=== PATIENT | male | born 1975 | race Caucasian/White ===

== ENCOUNTER 2020-10-27 06:26 | Inpatient (IN) | payer SELFPAY ==
[~2020-10-27] VITALS: Ht 190.5 cm; Wt 117.7 kg
[~2020-10-27 06:26] MED LIST: NO HOME MEDS
--- NOTE | 2020-10-27 06:27 | NUR ---
BY WC TO ROOM.
--- NOTE | 2020-10-27 06:58 | NUR ---
RECEIVED REPORT FROM JANEE CALHOUN.
--- NOTE | 2020-10-27 07:00 | NUR ---
REPORT TO UNIQUE MORAN
--- NOTE | 2020-10-27 07:10 | NUR ---
COVID SWAB COLLECTED, ISOLATION PRECAUTIONS INITIATED.
[2020-10-27 07:34] LABS: ALBUMIN 4.2 g/dL (3.2-5.0); ALKALINE PHOSPHATASE 86 u/l (38-126); ANION GAP 10 (6-22 (CALC)); BUN 14 mg/dL (9-20); BUN/CREATININE RATIO 18 (12-20 (CALC)); CARBON DIOXIDE 25 mmol/l (22-30); CHLORIDE 109 mmol/l (95-108); CREATININE 0.8 mg/dL (0.7-1.3); GFR > 60 ML/MIN (>=60 (CALC)); GFR FOR AFR.AMER. > 60 ML/MIN (>=60 (CALC)); POTASSIUM 4.1 mmol/l (3.5-5.1); SGOT/AST 32 u/l (17-59); SODIUM 140 mmol/l (137-146); TOTAL PROTEIN 7.8 g/dL (6.3-8.2)
[2020-10-27 07:39] LABS: BILIRUBIN, TOTAL 0.6 mg/dL (0.0-1.4); HEMOGLOBIN 17.4 g/dl (14.0-18.0); IMMATURE GRANULOCYTES 0.5 % (0.0-5.0); MEAN CELL VOLUME 90.6 fL CALC (80.0-100.0); MEAN CORPUSCULAR HGB 29.3 pG CALC (26.0-32.0); MEAN CORPUSCULAR HGB CONC 32.3 g/dL CAL (32.0-36.0); NEUT# 8.74 thou/uL (1.82-7.42); RED BLOOD COUNT 5.94 mill/uL (4.70-6.10); RED CELL DISTRI WIDTH 14.1 % (11.5-15.5)
[2020-10-27 07:40] LABS: HEMATOCRIT 53.8 % (39.0-50.0)
[2020-10-27 07:42] LABS: ACT PARTIAL THROMBO TIME 25.4 SECONDS (20.0-32.5); PROTHROMBIN TIME 10.3 SECONDS (9.0-12.5)
--- NOTE | 2020-10-27 08:26 | NUR ---
MD AT BEDSIDE TO DISCUSS RESULTS AND POC.
--- NOTE | 2020-10-27 09:50 | NUR ---
MD AT BEDSIDE TO DISCUSS RESULTS AND POC.
--- NOTE | 2020-10-27 10:21 | NUR ---
RECEIVED FOR CARE, PATIENT SITTING IN BED,DENIES ANY DISCOMFORT OR NEEDS AT THIS TIME. CALL VILLAR GIVEN.
--- NOTE | 2020-10-27 11:05 | NUR ---
DR LAMB AT BEDSIDE, AWAITING NEW ORDERS.
--- NOTE | 2020-10-27 13:09 | NUR ---
PT ARRIVED TO [facility] VIA WHEELCHAIR ACCOMPANIED BY ER NURSE, PT ALERT AND ORIENTED X3, AMBULATED WITH STEADY GAIT TO BED, ORIENTED PT TO ROOM AND CALL LIGHT, DISCUSSED POC, SKIN INTACT, TEDS APPLIED. ADMISSION ASSESSMENT COMPLETED, CALL LIGHT IN REACH,CONTINUE TO MONITOR.
--- NOTE | 2020-10-27 13:10 | NUR ---
REPORT CALLED TO NURSE FAUZIA IN SBAR FORMAT.
[2020-10-27 13:13] VITALS: BP 148/92
--- NOTE | 2020-10-27 13:15 | NUR ---
PATIENT TRANSFERRED VIA WC TO ROOM 272. STABLE UPON ARRIVAL.
--- NOTE | 2020-10-27 16:12 | NUR ---
PT RESTING IN BED, NO SIGNS OF DISTRESS NOTED, RESP EVEN AND UNLABORED. PT VOICES NO NEEDS OR COMPLAINTS AT THIS TIME, CALL LIGHT IN REACH,CONTINUE TO MONITOR.
[2020-10-27 19:00] VITALS: BP 142/79
[2020-10-28 04:00] VITALS: BP 149/83
[2020-10-28 06:02] LABS: HEMATOCRIT 50.9 % (39.0-50.0); HEMOGLOBIN 16.8 g/dl (14.0-18.0); IMMATURE GRANULOCYTES 0.4 % (0.0-5.0); MEAN CELL VOLUME 90.6 fL CALC (80.0-100.0); MEAN CORPUSCULAR HGB 29.9 pG CALC (26.0-32.0); NEUT# 7.03 thou/uL (1.82-7.42); RED BLOOD COUNT 5.62 mill/uL (4.70-6.10); RED CELL DISTRI WIDTH 14.2 % (11.5-15.5)
[2020-10-28 06:18] LABS: ALBUMIN 3.8 g/dL (3.2-5.0); ALKALINE PHOSPHATASE 82 u/l (38-126); ANION GAP 12 (6-22 (CALC)); BILIRUBIN, TOTAL 0.7 mg/dL (0.0-1.4); BUN 12 mg/dL (9-20); BUN/CREATININE RATIO 16 (12-20 (CALC)); C-REACTIVE PROTEIN 6.7 mg/dL (0-0.9); CALCULATED LDLCHOLESTEROL 130 mg/dL (62-129 (CALC)); CARBON DIOXIDE 24 mmol/l (22-30); CHLORIDE 107 mmol/l (95-108); CHOLESTEROL HDL RATIO 5.6 (<4.4 (CALC)); CREATININE 0.8 mg/dL (0.7-1.3); GFR > 60 ML/MIN (>=60 (CALC)); GFR FOR AFR.AMER. > 60 ML/MIN (>=60 (CALC)); HDL CHOLESTEROL 35 mg/dL (>=40); POTASSIUM 4.3 mmol/l (3.5-5.1); SGOT/AST 24 u/l (17-59); SODIUM 139 mmol/l (137-146); TOTAL CHOLESTEROL 199 mg/dl (0-199); TOTAL PROTEIN 6.9 g/dL (6.3-8.2); TOTAL TRIGLYCERIDES 168 mg/dl (30-149); VLDL CHOLESTROL 34 mg/dl (5-56 (CALC))
[2020-10-28 07:10] VITALS: BP 132/80
--- NOTE | 2020-10-28 07:10 | NUR ---
PATIENT SITTING UP IN BED AT THIS TIME. PATIENT DENIES ANY DISCOMFORT AT THIS TIME BUT DOES STATE SOMETIMES HE FEELS A SLIGHT PAIN IN THE CHEST AREA ESPECIALLY WHEN HE COUGHS. PATIENT EDUCATED ON PNEUMONIA COUGH AT THIS TIME. PATIENT LUNGS SOUNDS ARE CLEAR UPPER AND ANTERIOR AND LOWER LUNG SOUNDS ARE SLIGHTLY DIMINISHED AT THIS TIME. PATIENT ASSESSMENT DONE SEE INTERVENTIONS AND CALL LIGHT WITHIN REACH AND SIDERAILS UP X 2.
[2020-10-28] MEDS ORDERED: XARELTO STARTER1 TAB PO (10:14)
[2020-10-28] MEDS ORDERED: AMOX/K CLAV875 M1 PO (10:14)
--- NOTE | 2020-10-28 12:06 | NUR ---
PATIENT D/C AT THIS TIME AND WAS GIVEN A PNEMONIA VACCINE IN RT. DELTOID AND EDUCATION PROVIDED ON SIGNS AND SYMPTOMS OF INJECTION SITE SIDE EFFECTS AND MEDICATION SIDE EFFECTS. PATIENT VERBALIZED ALL UNDERSTANDING OF D/C INSTRUTION AND PNEMONIA VACCINE.
--- NOTE | 2020-10-28 12:28 | NUR ---
Discharge instructions given. Patient verbalizes understanding of same. Discharged in stable condition via Wheelchair to Home with *Other. All belongings sent with pt.
== END 2020-10-28 12:26 | disposition home or self-care (01) | DRG 175 ==
LOC: ED 06:26 → ED-I 09:16 → ED 09:25 → ED-I 09:26 → MS2 09:26 → ED 09:26 → MS2 11:54
PROVIDERS: Student in an Organized Health Care Education/Training Program; ADMIT Internal Medicine; ATTEND Internal Medicine
PROC: 3E0234Z Introduction of Serum, Toxoid and Vaccine into Muscle, Percutaneous Approach (ICD-10-PCS; principal; 2020-10-28)
DX: I26.99 Other pulmonary embolism without acute cor pulmonale (principal); J12.9 Viral pneumonia, unspecified; F17.210 Nicotine dependence, cigarettes, uncomplicated; Z23 Encounter for immunization; Z20.828 Contact with and (suspected) exposure to other viral communicable diseases
CPT/HCPCS: J1650; Q9967

== ENCOUNTER 2021-10-02 06:23 | Day surgery (SDC) | payer SELFPAY ==
[~2021-10-02] VITALS: Ht 188 cm; Wt 117.9 kg
[~2021-10-02 06:23] MED LIST changes: +AMOX/K CLAV875 M1 PO; +ATIVAN0.5 MG PO; +BUSPIRONE5 MG PO; +HYDROXYZ HCL25 MG PO; +XARELTO STARTER1 TAB PO; +XARELTO10 MG PO
[2021-10-02 09:13] VITALS: BP 119/83
== END 2021-10-02 09:23 | disposition home or self-care (01) | DRG 392 ==
LOC: ORM 06:23
PROVIDERS: ATTEND Surgery
PROC: 0DBB8ZX Excision of Ileum, Via Natural or Artificial Opening Endoscopic, Diagnostic (ICD-10-PCS; principal; 2021-10-02)
PROC: 0DBE8ZX Excision of Large Intestine, Via Natural or Artificial Opening Endoscopic, Diagnostic (ICD-10-PCS; 2021-10-02)
DX: K52.9 Noninfective gastroenteritis and colitis, unspecified (principal); F41.9 Anxiety disorder, unspecified; Z86.711 Personal history of pulmonary embolism; Z79.01 Long term (current) use of anticoagulants